=== PATIENT | female | born 1990 | race Caucasian/White ===

== ENCOUNTER 2017-06-19 17:33 | Emergency (ER) | payer MEDICARE, OTHER ==
[2017-06-19 17:43] VITALS: BP 133/65; PULSE 74; RESP 20; TEMP 98.1
--- NOTE | 2017-06-19 18:22 | XR ---
Right wrist HISTORY: Right wrist pain, trauma 4 views of the right wrist No comparisons Bone mineralization, joint spaces and alignment are maintained IMPRESSION: No fracture or dislocation is evident, follow-up as indicated for persistent symptoms.
[2017-06-19] MEDS ORDERED: IBUPROFEN 600 MG STARTER PACK 4 TAB BTL PO STA (18:23)
--- NOTE | 2017-06-19 18:24 | ED ---
Upper Extremity HPI - General Chief Complaint: Extremity Injury, Upper Stated Complaint: Fall, arm pain Time Seen by Provider: 06/19/17 17:47 Source: patient, RN notes reviewed, old records reviewed Mode of arrival: ambulatory Limitations: no limitations - History of Present Illness Initial Comments: This is a 26 year old female with CC of right wrist pain for one day. She reports that she tripped, and fell, and landed on an outstretched hand. She relates that there is pain at the base of the thumb, and painful with bearing weight. Patient states that she is right handed. Denies any peripheral paresthesia. She states no previous injury or fracture to this hand. - Related Data Home Medications Medication Instructions Recorded Confirmed No Known Home Medications [No 06/19/17 06/19/17 Known Home Medications] Allergies Allergy/AdvReac Type Severity Reaction Status Date / Time No Known Allergies Allergy Verified 06/19/17 17:43 Review of Systems ROS Statement: Those systems with pertinent positive or pertinent negative responses have been documented in the HPI. ROS Other: All systems not noted in ROS Statement are negative. Past Medical History Past Medical History: Asthma History of Any Multi-Drug Resistant Organisms: None Reported Past Surgical History: Section Additional Past Surgical History / Comment(s): OVARIAN CYST REMOVAL Past Anesthesia/Blood Transfusion Reactions: No Reported Reaction Past Psychological History: Anxiety, Bipolar, Depression Smoking Status: Former smoker Past Alcohol Use History: None Reported Past Drug Use History: None Reported - Past Family History Father Family Medical History: Coronary Artery Disease (CAD) Additional Family Medical History / Comment(s): General Exam - General Exam Comments Initial Comments: This is a 26 year old female, no distress. Limitations: no limitations General appearance: alert, in no apparent distress Head exam: Present: atraumatic, normocephalic, normal inspection Eye exam: Present: normal appearance, PERRL, EOMI. Absent: scleral icterus, conjunctival injection, periorbital swelling ENT exam: Present: normal exam, mucous membranes moist Neck exam: Present: normal inspection. Absent: tenderness, meningismus, lymphadenopathy Respiratory exam: Present: normal lung sounds bilaterally. Absent: respiratory distress, wheezes, rales, rhonchi, stridor Cardiovascular Exam: Present: regular rate, normal rhythm, normal heart sounds. Absent: systolic murmur, diastolic murmur, rubs, gallop, clicks GI/Abdominal exam: Present: soft, normal bowel sounds. Absent: distended, tenderness, guarding, rebound, rigid Extremities exam: Present: normal inspection, full ROM, normal capillary refill. Absent: tenderness, pedal edema, joint swelling, calf tenderness Right Upper Arm exam: Present: normal inspection, full ROM Elbow exam: Present: normal inspection, full ROM Forearm Wrist exam: Present: normal inspection, full ROM, tenderness, tenderness over anatomical snuff box Hand Wrist exam: Present: normal inspection, full ROM Neuro motor exam: Present: wrist extension intact, thumb IP flexion intact, thumb adduction intact Vascular: Present: vascular compromise Back exam: Present: normal inspection Neurological exam: Present: alert, oriented X3, CN II-XII intact Psychiatric exam: Present: normal affect, normal mood Skin exam: Present: warm, dry, intact, normal color. Absent: rash Course Vital Signs 06/19/17 17:41 Temperature 98.1 F Pulse Rate 74 Respiratory 20 Rate Blood Pressure 133/65 O2 Sat by Pulse 98 Oximetry Procedures - Orthopedic Splinting/Casting Injury #1 Side: right Upper Extremity Injury Location: hand Upper Extremity Immobilizer: thumb spica Additional Comments: Pt is neurobascuarly intact. Medical Decision Making - Medical Decision Making 26 year old female with CC of right wrist pain. Patient reports she tripped, and landed on an outstretched hand. She reports pain in anatomical snuff box. Patient xray is reviewed, negative for any acute process. Patient will be placed in thumb spica splint due to tenderness over scaphoid. Advised follow up with PCP and ortho and motrin and tylenol for pain. Discussed re-xray in 7-10 days. Return parameters dsicussed. - Radiology Data Radiology results: report reviewed Xray reviewed and negative for any acute process. Disposition Clinical Impression: Right wrist injury Disposition: HOME SELF-CARE Condition: Good Instructions: Scaphoid Fracture (ED) Additional Instructions: Patient is follow-up with orthopedic surgery in the splint else seen by orthopedics and re-x-ray in approximately 7 days. Return to emergency department if any alarming signs or symptoms occur. Referrals: Manuel Win MD [Primary Care Provider] - 1-2 days Wilfrido Ash DO [Doctor of Osteopathic Medicine] - 1-2 days Time of Disposition: 18:22
--- NOTE | 2017-06-22 03:43 | CDI ---
Documentation Clarification OP Dear EMPERATRIZ Price: Please do addendum to ED report for HPI , Physical exam and MDM. Thank you, Bernadette Velasquez [employer] If you have any question, Please contact clinical support manager at [phone] [facility]
== END 2017-06-19 18:39 | disposition home or self-care (01) ==
LOC: EC 17:33
DX: S69.91XA Unspecified injury of right wrist, hand and finger(s), initial encounter (principal); Z87.891 Personal history of nicotine dependence; W01.0XXA Fall on same level from slipping, tripping and stumbling without subsequent striking against object, initial encounter
CPT/HCPCS: 29125; 99284

== ENCOUNTER 2018-03-01 11:13 | Emergency (ER) | payer MEDICARE, OTHER ==
[2018-03-01 11:30] VITALS: TEMP 98.9
[2018-03-01] MEDS ORDERED: KETOROLAC 30 MG/ML 1 ML VIAL IVP STA ×2 (13:13→14:48)
--- NOTE | 2018-03-01 13:13 | ED ---
General Adult HPI - General Chief complaint: Headache Stated complaint: Arm numbness & dizziness Time Seen by Provider: 03/01/18 13:04 Source: patient Mode of arrival: wheelchair Limitations: no limitations - History of Present Illness Initial comments: Patient is a 27-year-old female who presents with a chief complaint of fatigue, lightheadedness and headache has been going on for 10 days. The patient states that the inciting factor was when she donated plasma. Patient states that she felt this way immediately after and has not felt better since. There are no aggravating or alleviating factors. Timing is constant. - Related Data Home Medications Medication Instructions Recorded Confirmed No Known Home Medications [No 06/19/17 03/01/18 Known Home Medications] Allergies Allergy/AdvReac Type Severity Reaction Status Date / Time No Known Allergies Allergy Verified 03/01/18 13:07 Review of Systems ROS Statement: Those systems with pertinent positive or pertinent negative responses have been documented in the HPI. ROS Other: All systems not noted in ROS Statement are negative. Constitutional: Denies: fever, chills Neurological: Reports: paresthesias (Left-sided ulnar distribution) Past Medical History Past Medical History: Asthma History of Any Multi-Drug Resistant Organisms: None Reported Past Surgical History: Section Additional Past Surgical History / Comment(s): OVARIAN CYST REMOVAL Past Anesthesia/Blood Transfusion Reactions: No Reported Reaction Past Psychological History: Anxiety, Bipolar, Depression Smoking Status: Former smoker Past Alcohol Use History: None Reported Past Drug Use History: None Reported - Past Family History Father Family Medical History: Coronary Artery Disease (CAD) Additional Family Medical History / Comment(s): General Exam Limitations: no limitations General appearance: alert, in no apparent distress Head exam: Present: atraumatic, normocephalic Eye exam: Present: normal appearance, PERRL ENT exam: Present: normal exam, mucous membranes moist Neck exam: Present: normal inspection. Absent: tenderness Respiratory exam: Present: normal lung sounds bilaterally. Absent: respiratory distress, wheezes Cardiovascular Exam: Present: regular rate, normal rhythm GI/Abdominal exam: Present: soft. Absent: distended, tenderness Rectal exam: Present: deferred Extremities exam: Present: normal inspection Back exam: Present: normal inspection Neurological exam: Present: alert, oriented X3 Psychiatric exam: Present: normal affect, normal mood Skin exam: Present: warm, dry, intact Course Vital Signs 03/01/18 03/01/18 03/01/18 11:26 13:49 15:01 Temperature 98.9 F Pulse Rate 79 60 58 L Respiratory 20 16 16 Rate Blood Pressure 137/70 125/60 136/67 O2 Sat by Pulse 99 99 99 Oximetry Medical Decision Making - Medical Decision Making Patient presents with a chief complaint of fatigue and dizziness after donating plasma. On initial evaluation, vital signs are stable, patient is in no distress. Patient evaluated basic labs and urinalysis. Patient's symptoms likely secondary to dehydration, she will be given 2 L of IV fluid and Toradol in the emergency department. We'll reexamine the patient. 3:51 PM On reevaluation, patient states that she is feeling improved though a little sleepy from the headache cocktail. Laboratory evaluation is unremarkable. At this time, patient is stable for discharge. She was instructed to follow up with primary care in 1-2 days, return to the emergency department if symptoms worsen or change. - Lab Data Result diagrams: 03/01/18 13:28 03/01/18 13:28 Lab Results 03/01/18 03/01/18 03/01/18 Range/Units 13:22 13:28 13:28 WBC 8.8 (3.8-10.6) k/uL RBC 5.08 (3.80-5.40) m/uL Hgb 14.4 (11.4-16.0) gm/dL Hct 42.8 (34.0-46.0) % MCV 84.2 (80.0-100.0) fL MCH 28.4 (25.0-35.0) pg MCHC 33.8 (31.0-37.0) g/dL RDW 13.1 (11.5-15.5) % Plt Count 210 (150-450) k/uL Neutrophils % 61 % Lymphocytes % 27 % Monocytes % 6 % Eosinophils % 3 % Basophils % 0 % Neutrophils # 5.4 (1.3-7.7) k/uL Lymphocytes # 2.4 (1.0-4.8) k/uL Monocytes # 0.6 (0-1.0) k/uL Eosinophils # 0.2 (0-0.7) k/uL Basophils # 0.0 (0-0.2) k/uL Sodium 143 (137-145) mmol/L Potassium 4.4 (3.5-5.1) mmol/L Chloride 105 (98-107) mmol/L Carbon Dioxide 25 (22-30) mmol/L Anion Gap 13 mmol/L BUN 13 (7-17) mg/dL Creatinine 0.63 (0.52-1.04) mg/dL Est GFR (CKD-EPI)AfAm >90 (>60 ml/min/1.73 sqM) Est GFR (CKD-EPI)NonAf >90 (>60 ml/min/1.73 sqM) Glucose 80 (74-99) mg/dL Calcium 9.6 (8.4-10.2) mg/dL Urine Color Yellow Urine Appearance Clear (Clear) Urine pH 6.5 (5.0-8.0) Ur Specific [place] 1.017 (1.001-1.035) Urine Protein Negative (Negative) Urine Glucose (UA) Negative (Negative) Urine Ketones Negative (Negative) Urine Blood Negative (Negative) Urine Nitrite Negative (Negative) Urine Bilirubin Negative (Negative) Urine Urobilinogen <2.0 (<2.0) mg/dL Ur Leukocyte Esterase Negative (Negative) Disposition Clinical Impression: Dehydration, Headache Disposition: HOME SELF-CARE Condition: Good Instructions: Acute Headache (ED), Dehydration (ED) Is patient prescribed a controlled substance at d/c from ED?: No Referrals: Alexus Pop MD [Primary Care Provider] - 1-2 days
[2018-03-01] MEDS: SODIUM CHLORIDE 0.9% 2,000 ML IV ONE ×2 (13:30→13:31)
[2018-03-01 13:40] LABS: Basophils % (A) 0 %; Eosinophils # (A) 0.2 k/uL (0-0.7); Eosinophils % (A) 3 %; HCT 42.8 % (34.0-46.0); HGB 14.4 gm/dL (11.4-16.0); Lymphocytes # (A) 2.4 k/uL (1.0-4.8); Lymphocytes % (A) 27 %; MCH 28.4 pg (25.0-35.0); MCHC 33.8 g/dL (31.0-37.0); MCV 84.2 fL (80.0-100.0); Mean Platelet Volume 8.1; Monocytes # (A) 0.6 k/uL (0-1.0); Monocytes % (A) 6 %; Neutrophils # (A) 5.4 k/uL (1.3-7.7); Neutrophils % (A) 61 %; Platelet Count 210 k/uL (150-450); RBC 5.08 m/uL (3.80-5.40); RDW 13.1 % (11.5-15.5); WBC 8.8 k/uL (3.8-10.6)
[2018-03-01] MEDS ORDERED: ONDANSETRON 4 MG/2 ML VIAL IVP STA (13:47)
[2018-03-01 13:49] LABS: Anion Gap 13 mmol/L; Blood Urea Nitrogen 13 mg/dL (7-17); Calcium 9.6 mg/dL (8.4-10.2); Carbon Dioxide 25 mmol/L (22-30); Chloride 105 mmol/L (98-107); Glucose 80 mg/dL (74-99); Potassium 4.4 mmol/L (3.5-5.1); Sodium 143 mmol/L (137-145)
[2018-03-01 13:50] VITALS: RESP 16
[2018-03-01 13:50] LABS: Appearance,Urine Clear (Clear); Bilirubin,Urine Negative (Negative); Blood,Urine Negative (Negative); Color,Urine Yellow; Glucose,Urine (UA) Negative (Negative); Ketones,Urine Negative (Negative); Leukocyte Esterase,Urine Negative (Negative); Nitrite,Urine Negative (Negative); PH, Urine 6.5 (5.0-8.0); Protein,Urine Negative (Negative); Specific Gravity,Urine 1.017 (1.001-1.035); Urobilinogen,Urine <2.0 mg/dL (<2.0)
[2018-03-01] MEDS ORDERED: METOCLOPRAMIDE 5 MG/ML 2 ML VIAL IVP STA (14:48)
[2018-03-01] MEDS ORDERED: DEXAMETHASONE SOD PHOSPHATE 10 MG/ML 1 ML VIAL IV STA (14:48)
[2018-03-01] MEDS ORDERED: diphenhydrAMINE 50 MG/ML 1 ML VIAL IVP STA (14:48)
[2018-03-01 16:09] VITALS: BP 123/68; PULSE 72
== END 2018-03-01 16:11 | disposition home or self-care (01) ==
LOC: EC 11:13
DX: E86.0 Dehydration (principal); R51 Headache; Z87.891 Personal history of nicotine dependence
CPT/HCPCS: 36415; 80048; 85025; 81003; 99284; 96374; 96375 ×4; 96376; 96361; J1200; J1100; J2765; J2405; J1885

== ENCOUNTER → 2019-11-08 | Outpatient (CLI) | payer MEDICARE, OTHER ==
[2019-11-08 18:07] LABS: Basophils # (A) 0.1 k/uL (0-0.2); Basophils % (A) 1 %; Eosinophils # (A) 0.2 k/uL (0-0.7); Eosinophils % (A) 2 %; HCT 43.2 % (34.0-46.0); HGB 14.2 gm/dL (11.4-16.0); Lymphocytes # (A) 2.7 k/uL (1.0-4.8); Lymphocytes % (A) 24 %; MCH 28.2 pg (25.0-35.0); MCHC 32.8 g/dL (31.0-37.0); MCV 85.7 fL (80.0-100.0); Mean Platelet Volume 8.4; Monocytes # (A) 0.6 k/uL (0-1.0); Monocytes % (A) 6 %; Neutrophils # (A) 7.4 k/uL (1.3-7.7); Neutrophils % (A) 67 %; Platelet Count 217 k/uL (150-450); RBC 5.03 m/uL (3.80-5.40); RDW 13.1 % (11.5-15.5); WBC 11.1 k/uL (3.8-10.6)
[2019-11-08 18:23] LABS: HCG,Qualitative Serum Not Detected
[2019-11-09 01:03] LABS: ALT 33 U/L (8-44); AST 27 U/L (13-35); African American GFR (CKD) 114.7 (60.0-200.0); Albumin/Globulin Ratio 2.04 (1.60-3.17); Alkaline Phosphatase 64 U/L (41-126); Calcium 9.3 mg/dL (8.7-10.3); Carbon Dioxide 20.9 mmol/L (21.6-31.8); Chloride 106 mmol/L (96-109); Globulin 2.3 g/dL (1.6-3.3); Glucose 96 mg/dL (70-110); Non-African American GFR(CKD) 98.9 (60.0-200.0); Potassium 4.2 mmol/L (3.5-5.5); Sodium 139 mmol/L (135-145); Total Bilirubin 0.3 mg/dL (0.3-1.2)
== END | disposition home or self-care (01) ==
LOC: LABWHC1 17:12
PROVIDERS: ATTEND Nurse Practitioner Family
DX: R10.2 Pelvic and perineal pain (principal); R10.11 Right upper quadrant pain; N91.2 Amenorrhea, unspecified
CPT/HCPCS: 36415; 80053; 84703; 85025

== ENCOUNTER → 2019-11-09 | Outpatient (CLI) | payer MEDICARE, OTHER ==
--- NOTE | 2019-11-09 15:03 | US ---
EXAMINATION TYPE: US abdomen complete DATE OF EXAM: 11/09/2019 COMPARISON: NONE CLINICAL HISTORY: R10.2 pelvic pain, [id number] R10.11. abd and pelvic pain EXAM MEASUREMENTS: Liver Length: 17.4 cm Gallbladder Wall: 0.3 cm CBD: 0.7 cm Spleen: 13.3 cm Right Kidney: 11.3 x 4.7 x 5.0 cm Left Kidney: 10.8 x 5.6 x 5.8 cm *difficult to scan due to body habitus and bowel gas Pancreas: wnl Liver: intercostal imaging, difficult to penetrate Gallbladder: single, anterior wall comet tail artifact, possible adenomyomatosis Evidence for sonographic Branham's sign: no CBD: wnl Spleen: Upper limits of normal size Right Kidney: wnl Left Kidney: wnl Upper IVC: wnl Abd Aorta: wnl The liver is homogenous. The intrahepatic portion of the IVC and proximal abdominal aorta are within normal limits. There is no evidence of cholelithiasis. Common bile duct is unremarkable. The visu alized portions of the pancreas are homogenous. The spleen is upper limits of normal size. Kidneys are symmetric and free of hydronephrosis. No renal lesions are seen. IMPRESSION: 1. Findings suggesting segmental adenomyomatosis of the gallbladder. 2. Prominent size of the spleen approaching criteria for splenomegaly. 3. Suboptimal evaluation of the liver. Correlation with serum laboratory values is recommended to ass ess for hepatic steatosis.
--- NOTE | 2019-11-10 08:06 | US ---
EXAMINATION TYPE: US pelvic complete DATE OF EXAM: 11/09/2019 COMPARISON: CT, US CLINICAL HISTORY: R10.2 pelvic pain, [id number] R10.11. Pelvic pain x 4 days per patient; ; C s ection x 2 TECHNIQUE: Transvaginal (TV). Transvaginal sonographic images were medically necessary to better ass ess the following anatomy: ovaries and uterus, as bladder was not full for TA US assessment Date of LMP: 10/07/2019 EXAM MEASUREMENTS: Uterus: 8.5 x 5.5 x 3.8 cm Endometrial Stripe: 0.7 cm Right Ovary: 3.2 x 1.9 x 2.0 cm Left Ovary: 4.0 x 4.8 x 2.7 cm 1. Uterus: Anteverted; C - section scar is noted 2. Endometrium: thin for Day 34 LMP, thin fluid area noted in upper endometrium =0.3 x 0.9 x 0.1cm. 3. Right Ovary: multiple small follicles noted in periphery 4. Left Ovary: multiple follicles with largest as hemorrhagic cyst with internal echoes measuring 2. 5 x 2.2 x 2.3cm Spectral, color and waveform Doppler imaging shows good arterial and venous flow within the ovaries ; there is no evidence for ovarian torsion. 5. Bilateral Adnexa: wnl 6. Posterior cul-de-sac: small amount of free fluid = 2.0 x 1.7 x 0.9cm. IMPRESSION: 1. Heterogenous endometrium with scant amount of linear internal fluid, possibly related to the phase of menses. Ensure negative beta-hCG to exclude early or ectopic. 2. Left ovarian cyst is minimally complex and likely hemorrhagic. 3. Multiple bilateral ovarian follicles, peripherally oriented of the right ovary, which can be seen in polycystic ovarian syndrome. 2.
== END | disposition home or self-care (01) ==
LOC: RADUSWWP 13:31
PROVIDERS: ATTEND Family Medicine
DX: R16.1 Splenomegaly, not elsewhere classified (principal); R10.2 Pelvic and perineal pain; R42 Dizziness and giddiness; R10.11 Right upper quadrant pain
CPT/HCPCS: 76700; 76830

== ENCOUNTER → 2019-11-16 | Outpatient (CLI) | payer MEDICARE, OTHER ==
--- NOTE | 2019-11-16 14:36 | USB ---
Reason for exam: clinical finding. History: Family history of breast cancer in maternal aunt. Taking hormonal contraceptives for 9 years beginning at age 13. Indicated problem(s): pain in both breasts. Physical Findings: Nurse did not find any significant physical abnormalities on exam. US Breast BILAT Right complete breast ultrasound includes all four quadrants, the retroareolar region and axilla. Finding demonstrates no cystic or solid lesion seen. Left complete breast ultrasound includes all four quadrants, the retroareolar region and axilla. Finding demonstrates no cystic or solid lesion seen. No suspicious sonographic finding. These results were verbally communicated with the patient and result sheet given to the patient on 11/16/19. ASSESSMENT: Negative, BI-RAD 1 RECOMMENDATION: Routine screening mammogram of both breasts at age 39. (or sooner if clinically indicated) Manage on a clinical basis. Likely physiologic milky discharge.
== END | disposition home or self-care (01) ==
LOC: RADUSWWP 13:33
PROVIDERS: ATTEND Family Medicine
DX: N64.4 Mastodynia (principal)

== ENCOUNTER → 2025-01-24 | Outpatient (CLI) | payer MEDICARE, OTHER ==
[2025-01-24 13:33] VITALS: BP 129/82; PULSE 84; RESP 16; TEMP 97.8
--- NOTE | 2025-01-24 14:07 | P.SLEEP ---
History of Present Illness DATE: 01/24/2025 CONSULTATION/NEW PATIENT EVALUATION HISTORY OF PRESENT ILLNESS/SLEEP-WAKE EVALUATION: 54-year-old lady who have b een evaluated in sleep center for possible obstructive sleep apnea hypopnea syndrome SLEEP SCHEDULE: From 1011 PM to 68 AM 7 days a week. FALLING ASLEEP: Sometimes patient has difficulties with falling asleep, has TV set in bedroom DURING SLEEP: Patient wakes up from sleep 2 times with dry mouth, panic attacks. No history of hypnogogical hallucinations, sleep paralysis or cataplexy DURING THE DAY/WAKE STATE: In the morning patient wake up tired, falling asleep during the day. Positive history of difficulties to concentrate, episodes of irritability, depression and anxiety. Sleepiness and tiredness during the day, may take nap 2 times during the day. [place] Sleepiness Scale is 5. MEDICATIONS: Please see below PAST MEDICAL HISTORY: Learning disability, polycystic ovary syndrome, Mallika thyroiditis, allergy SURGICAL HISTORY: Left ovary cyst removed SOCIAL HISTORY: Please see below FAMILY HISTORY: Please see below MEDICATIONS: Please see below REVIEW OF SYSTEMS: No fevers. No double vision. No recent chest pain. No shortness of breath. No abdominal pain. No bleeding episodes. No blood in urine. No seizure episodes. PHYSICAL EXAMINATION: GENERAL: A pleasant patient without any distress. VITAL SIGNS: Please see below, weight 331 pounds, BMI 46.8. HEENT: PERRLA, EOMI. Evaluation of oropharynx showed tongue protrudes midline. Low position of soft palate Mallampati 3 NECK: Supple. No JVD. Thyroid is not palpable. 16 inches in circumference LUNGS: Clear to percussion and to auscultation. Good air exchange. No wheezing or rhonchi. HEART: S1, S2 regular. No murmurs, gallops or rubs. ABDOMEN: Soft and nontender. Bowel sounds are present. No organomegaly appreciated. EXTREMITIES: No clubbing or cyanosis. PERSONAL CARE AID: Awake, alert, and oriented x3. Cranial nerves 2 to 7 intact. There is no fasciculation or atrophy noted. No focal deficits observed. ASSESSMENT: 1. Multiple awakenings from sleep, low position of soft palate Mallampati 3, wide neck 16 inches in circumference, sleepiness during the day patient takes up to 2 naps. Obstructive sleep apnea hypopnea syndrome. 2. Obesity, BMI 46.8. 3. History of Mallika thyroiditis, hypothyroidism. 4. History of learning disability since childhood. 5. Allergy. 6. History of polycystic ovary syndrome. 7. Status post cyst removed from left ovary. PLAN: 1. Polysomnography for evaluation of patient's breathing during sleep. 2. Following plan after reading sleep study. 3. Preferable position during sleep on the side. 4. No driving if patient feels any sleepiness. Patient is aware of civil and criminal liability for unsafe driving. 5. Losing weight program. 6. Sleep hygiene with regular time in bed for least 8 hours. Sincerely, Garcia Saez MD, PhD, FAASM. Diplomat of [employer], Sleep Medicine Board by [employer] [facility] [place] Past Medical History Past Medical History: Asthma, Thyroid Disorder Additional Past Medical History / Comment(s): hashimotos History of Any Multi-Drug Resistant Organisms: None Reported Past Surgical History: Section Additional Past Surgical History / Comment(s): OVARIAN CYST REMOVAL Past Anesthesia/Blood Transfusion Reactions: No Reported Reaction Past Psychological History: Anxiety, Bipolar, Depression Additional Psychological History / Comment(s): seraquel stopped with Smoking Status: Former smoker Past Alcohol Use History: None Reported Past Drug Use History: None Reported - Past Family History Father Family Medical History: Asthma, Coronary Artery Disease (CAD), Hypertension Additional Family Medical History / Comment(s): mental illness, Mother Family Medical History: GERD/Reflux, Hyperlipidemia, Hypertension, Rheumatoid Arthritis (RA), Sleep Apnea/CPAP/BIPAP Additional Family Medical History / Comment(s): fibromyalgia, headaches, snoring Daughter(s) Family Medical History: Asthma, GERD/Reflux, Sleep Apnea/CPAP/BIPAP Medications and Allergies Home Medications Medication Instructions Recorded Confirmed Type Doxylamine Succinate [Unisom] 25 mg PO HS 11/02/19 11/02/19 History Meclizine [Antivert] 25 mg PO TID PRN 11/02/19 11/02/19 History Thyroid,Pork [Public Policy Professor Thyroid] 60 mg PO DAILY 11/02/19 11/02/19 History ondansetron HCL [Zofran] 4 mg PO TID 11/02/19 11/02/19 History Cetirizine HCl 10 mg PO DAILY 01/24/25 01/24/25 History Cholecalciferol (Vitamin D3) 50 mcg PO DAILY 01/24/25 01/24/25 History [Vitamin D3 (50 Mcg = 2000 Iu)] Fluticasone Furoate [Arnuity 50 mcg PO DAILY 01/24/25 01/24/25 History Ellipta] Levothyroxine Sodium [Synthroid] 137 mcg PO DAILY 01/24/25 01/24/25 History Liothyronine Sodium 25 mcg PO DAILY 01/24/25 01/24/25 History Phentermine HCl 37.5 mg PO DAILY 01/24/25 01/24/25 History Allergies Allergy/AdvReac Type Severity Reaction Status Date / Time No Known Allergies Allergy Verified 11/02/19 16:36 Physical Exam Vitals: Vital Signs Temp Pulse Resp BP Pulse Ox 01/24/25 13:31 97.8 F 84 16 129/82 99 Intake and Output 01/23/25 01/24/25 01/24/25 22:59 06:59 14:59 Other: Weight 150.139 kg Sleep Note - Sleep Data ESS Total: 5 - Sleep Note Sleep Note: Temperature: 97.8 F Pulse Rate: 84 Respiratory Rate: 16 Blood Pressure: 129/82 SpO2: 99 Height: 5 ft 10.5 in Weight: 150.139 kg BMI: Neck Circumference: 16
== END ==
LOC: 3 N SLEEP 13:10
PROVIDERS: ATTEND Internal Medicine
DX: G47.33 Obstructive sleep apnea (adult) (pediatric) (principal); E66.9 Obesity, unspecified; E03.9 Hypothyroidism, unspecified; Z68.42 Body mass index [BMI] 45.0-49.9, adult; Z86.39 Personal history of other endocrine, nutritional and metabolic disease; Z86.59 Personal history of other mental and behavioral disorders; Z90.721 Acquired absence of ovaries, unilateral; Z87.891 Personal history of nicotine dependence
CPT/HCPCS: 99211